=== PATIENT | male | born 1960 | race Caucasian/White ===

== ENCOUNTER 2017-05-03 10:35 | Emergency (ER) | payer BC ==
[~2017-05-03] VITALS: Ht 185.4 cm; Wt 100.0 kg
[~2017-05-03 10:35] MED LIST: ASPI325T PO
[2017-05-03 10:45] VITALS: BP 123/83; PULSE 76; RESP 16; TEMP 97.8; O2SAT 97
[2017-05-03] MEDS ORDERED: SODIUM CHLORIDE 0.9% FLUSH 10 ML FLUSH IVF PRN (10:45)
[2017-05-03] MEDS ORDERED: ASPI-183 PO (11:07)
[2017-05-03 11:09] LABS: AUTOMATED NEUTROPHIL # 4.2 TH/MM3 (1.8-7.7); BASOPHIL % 0.7 % (0.0-2.0); EOSINOPHIL # 0.2 TH/MM3 (0-0.4); EOSINOPHIL % 3.5 % (0.0-4.0); HEMATOCRIT 42.2 % (39.0-51.0); HEMOGLOBIN 13.9 GM/DL (13.0-17.0); LYMPH % 21.9 % (9.0-44.0); LYMPHOCYTE # 1.4 TH/MM3 (1.0-4.8); MEAN CORPUSCULAR HEMOGLOBIN 27.6 PG (27.0-34.0); MEAN CORPUSCULAR HGB CONC 32.8 % (32.0-36.0); MEAN PLATELET VOLUME 8.2 FL (7.0-11.0); MONO % 8.7 % (0.0-8.0); MONOCYTE # 0.5 TH/MM3 (0-0.9); NEUT % 65.2 % (16.0-70.0); PLATELET COUNT 201 TH/MM3 (150-450); RED BLOOD COUNT 5.03 MIL/MM3 (4.50-5.90); RED CELL DISTRIBUTION WIDTH 12.8 % (11.6-17.2); WHITE BLOOD COUNT 6.3 TH/MM3 (4.0-11.0)
[2017-05-03 11:20] LABS: CHLORIDE 103 MEQ/L (98-107); SODIUM (NA) 137 MEQ/L (136-145)
[2017-05-03 11:23] LABS: CALCIUM 8.6 MG/DL (8.5-10.1)
[2017-05-03 11:24] LABS: ALBUMIN 4.2 GM/DL (3.4-5.0); BICARBONATE 28.4 MEQ/L (21.0-32.0); BLOOD UREA NITROGEN 14 MG/DL (7-18); GLUCOSE,RANDOM 89 MG/DL (74-106); INTERNATIONAL NORMALIZED RATIO 1.1 RATIO; MAGNESIUM 2.3 MG/DL (1.5-2.5); PROTHROMBIN TIME - PATIENT 10.9 SEC (9.8-11.6)
[2017-05-03 11:25] VITALS: BP 106/73; PULSE 63; RESP 17; O2SAT 96
[2017-05-03 11:26] LABS: ALT (GPT) 33 U/L (12-78)
[2017-05-03 11:27] LABS: AST (GOT) 17 U/L (15-37); GLOMERULAR FILTRATION RATE 76 ML/MIN (>89)
[2017-05-03 11:28] LABS: TOTAL BILIRUBIN ADULT 0.5 MG/DL (0.2-1.0); TOTAL PROTEIN 7.3 GM/DL (6.4-8.2)
[2017-05-03 11:29] LABS: ALKALINE PHOSPHATASE 93 U/L (45-117)
[2017-05-03 11:32] LABS: TROPONIN I LESS THAN 0.02 NG/ML (0.02-0.05)
--- NOTE | 2017-05-03 11:42 | PD ---
HPI Chief Complaint: Cardiac Complaint Time Seen by Provider: 10:40 Travel History International Travel<30 days: No Contact w/Intl Traveler<30days: No Traveled to known affect area: No History of Present Illness HPI Patient 57-year-old male with a history of atrial fibrillation followed by Dr. Olvera presents emergency department for evaluation of left shoulder pain and indigestion since yesterday becoming some mild chest discomfort this morning. Patient symptoms been going on for the past several hours and gradually worsening. States she has had indigestion before felt like this was but the arm pain is what prompted an ER visit this morning. He states that he has never had a cardiac catheterization has been years since he has had a stress test. States symptoms are only mild now, cannot identify any alleviating or exacerbating factors, context as above, not associated with any diarrhea abdominal pain constipation dizziness or weakness per PFS Past Medical History Atrial Fibrillation: Yes Blood Disorders: No Heart Rhythm Problems: Yes Cancer: No Cardiovascular Problems: Yes (afib) Diminished Hearing: No Endocrine: No Genitourinary: No Immune Disorder: No Musculoskeletal: No Neurologic: No Psychiatric: No Reproductive: No Respiratory: No Tetanus Vaccination: > 5 Years Influenza Vaccination: No Past Surgical History Cardiac Surgery: Yes (CRYO-ABLATION) Oral Surgery: Yes Other Surgery: Yes (VASECTOMY) Social History Alcohol Use: Yes (occ) Tobacco Use: No Substance Use: No Allergies-Medications (Allergen,Severity, Reaction): Coded Allergies: No Known Allergies (Verified Adverse Reaction, Unknown, 05/03/17) Reported Meds & Prescriptions Reported Meds & Active Scripts Active Reported Aspirin 325 Mg Tab 325 Mg PO DAILY Review of Systems Except as stated in HPI: all other systems reviewed are Neg Physical Exam Narrative GENERAL: Well-developed well-nourished in October SKIN: Focused skin assessment warm/dry. HEAD: Atraumatic. Normocephalic. EYES: Pupils equal and round. No scleral icterus. No injection or drainage. ENT: No nasal bleeding or discharge. Mucous membranes pink and moist. NECK: Trachea midline. No JVD. CARDIOVASCULAR: Regular rate and rhythm. No murmur appreciated. No murmurs no gallops no rubs, 2+ bilateral equal pulses in all 4 extremities. No chest wall tenderness RESPIRATORY: No accessory muscle use. Clear to auscultation. Breath sounds equal bilaterally. GASTROINTESTINAL: Abdomen soft, non-tender, nondistended. Hepatic and splenic margins not palpable. MUSCULOSKELETAL: No obvious deformities. No clubbing. No cyanosis. No edema. Pulses motor and sensory intact distally in all 4 extremities NEUROLOGICAL: Awake and alert. No obvious cranial nerve deficits. Motor grossly within normal limits. Normal speech. PSYCHIATRIC: Appropriate mood and affect; insight and judgment normal. Data Data Last Documented VS Vital Signs Date Time Temp Pulse Resp B/P (MAP) Pulse Ox O2 Delivery O2 Flow Rate FiO2 05/03/17 13:24 65 17 120/65 (83) 97 05/03/17 11:25 Room Air 05/03/17 10:45 97.8 Orders Orders Electrocardiogram (05/03/17 10:41) Ckmb (Isoenzyme) Profile (05/03/17 10:41) Complete Blood Count With Diff (05/03/17 10:41) Comprehensive Metabolic Panel (05/03/17 10:41) Magnesium (Mg) (05/03/17 10:41) Prothrombin Time / Inr (Pt) (05/03/17 10:41) Act Partial Throm Time (Ptt) (05/03/17 10:41) Troponin I (05/03/17 10:41) Chest, Single Ap (05/03/17 10:41) Ecg Monitoring (05/03/17 10:41) Iv Access Insert/Monitor (05/03/17 10:41) Oximetry (05/03/17 10:41) Oxygen Administration (05/03/17 10:41) Sodium Chloride 0.9% Flush (Ns Flush) (05/03/17 10:45) Thyroid Stimulating Hormone (05/03/17 10:41) CKMB (05/03/17 10:50) CKMB% (05/03/17 10:50) Ed Discharge Order (05/03/17 12:56) Labs Laboratory Tests Test 05/03/17 10:50 White Blood Count 6.3 TH/MM3 Red Blood Count 5.03 MIL/MM3 Hemoglobin 13.9 GM/DL Hematocrit 42.2 % Mean Corpuscular Volume 84.0 FL Mean Corpuscular Hemoglobin 27.6 PG Mean Corpuscular Hemoglobin Concent 32.8 % Red Cell Distribution Width 12.8 % Platelet Count 201 TH/MM3 Mean Platelet Volume 8.2 FL Neutrophils (%) (Auto) 65.2 % Lymphocytes (%) (Auto) 21.9 % Monocytes (%) (Auto) 8.7 % Eosinophils (%) (Auto) 3.5 % Basophils (%) (Auto) 0.7 % Neutrophils # (Auto) 4.2 TH/MM3 Lymphocytes # (Auto) 1.4 TH/MM3 Monocytes # (Auto) 0.5 TH/MM3 Eosinophils # (Auto) 0.2 TH/MM3 Basophils # (Auto) 0.0 TH/MM3 CBC Comment DIFF FINAL Differential Comment Prothrombin Time 10.9 SEC Prothromb Time International Ratio 1.1 RATIO Activated Partial Thromboplast Time 26.2 SEC Blood Urea Nitrogen 14 MG/DL Creatinine 1.00 MG/DL Random Glucose 89 MG/DL Total Protein 7.3 GM/DL Albumin 4.2 GM/DL Calcium Level 8.6 MG/DL Magnesium Level 2.3 MG/DL Alkaline Phosphatase 93 U/L Aspartate Amino Transf (AST/SGOT) 17 U/L Alanine Aminotransferase (ALT/SGPT) 33 U/L Total Bilirubin 0.5 MG/DL Sodium Level 137 MEQ/L Potassium Level 3.9 MEQ/L Chloride Level 103 MEQ/L Carbon Dioxide Level 28.4 MEQ/L Anion Gap 6 MEQ/L Estimat Glomerular Filtration Rate 76 ML/MIN Total Creatine Kinase 222 U/L Creatine Kinase MB 1.5 NG/ML Troponin I LESS THAN 0.02 NG/ML Thyroid Stimulating Hormone 3rd Gen 1.640 uIU/ML MDM Medical Decision Making Medical Screen Exam Complete: Yes Emergency Medical Condition: Yes Differential Diagnosis ACS, ID, indigestion, shoulder strain, shoulder sprain peer Narrative Course The progression of the patient's symptoms are somewhat atypical however cannot identify one cause of his symptoms. Certainly he could be having indigestion and shoulder strain but I counseled him very closely that his symptoms could be secondary to coronary artery disease and I recommended that he be admitted to the hospital for stress testing for further risk stratification. Patient states he is feeling fine and would like to go home and follow-up with Dr. Garcia and thinks he can do so within the next week. I discussed with him that until he has follow-up I cannot give him any reassurances that it is not as hard and he is at risk of and permanent disability. He verbalized understanding and agreement and will follow up with Dr. Shane. Discussed he is welcome to return to the emergency department anytime should he require additional evaluation. His discharge into his own care Diagnosis Primary Impression: Chest pain Qualified Codes: R07.9 - Chest pain, unspecified Referrals: Johan Olvera MD Additional Instructions: Follow up with Dr. Olvera within one week. You can return to the ER anytime you would like to have a re-evaluation for chest pain. Disposition: 01 DISCHARGE HOME Condition: Stable Kyle Severino MD May 03, 2017 11:42
--- NOTE | 2017-05-03 12:04 | RADRPT ---
EXAM DATE/TIME: 05/03/2017 10:50 [facility] COMPARISON: CHEST SINGLE AP, July 04, 2011, 10:10. INDICATIONS : Chest pain MEDICAL HISTORY : AFib SURGICAL HISTORY : Cryo-ablation ENCOUNTER: Initial ACUITY: 1 day PAIN SCORE: 2/10 LOCATION: chest FINDINGS: A single view of the chest demonstrates the lungs to be symmetrically aerated without evidence of mas s, infiltrate or effusion. Mild cardiomegaly is noted. Osseous structures are intact. CONCLUSION: Mild cardiomegaly. No focal infiltrate or pulmonary vascular congestion. Kyle Yu MD on May 03, 2017 at 12:01 Board Certified Radiologist. This report was verified electronically.
[2017-05-03 13:24] VITALS: BP 120/65
--- NOTE | 2017-05-03 14:59 | EKG ---
Date Performed: 05/03/2017 Time Performed: 10:46:39 PTAGE: 57 years EKG: Sinus rhythm MARKED LEFT AXIS DEVIATION Since previous tracing, no significant change noted ABNORMAL ECG PREVIOUS TRACING : 07/04/2011 10.04 DOCTOR: Cinthya Sierra Interpretating Date/Time 05/03/2017 14:56:38
== END 2017-05-03 13:26 | disposition home or self-care (01) ==
LOC: PHED 10:35
DX: R07.89 Other chest pain (principal); R94.31 Abnormal electrocardiogram [ECG] [EKG]; I48.91 Unspecified atrial fibrillation; Z79.82 Long term (current) use of aspirin
CPT/HCPCS: 71045; 80053; 82550; 82552; 83735; 84443; 84484; 85025; 85610; 85730; 93005; 99285